=== PATIENT | female | born 1975 | race Caucasian/White ===

== ENCOUNTER 2016-10-08 18:31 | Emergency (ER) | payer OTHER ==
[2016-10-08 19:06] LABS: Basophils # (auto) 0 uL; Basophils % (auto) 0.5 % (0.0-2.0); Eosinophils # (auto) 0.1 uL; Hematocrit 37.6 % (36.0-46.0); Hemoglobin 12.5 g/dL (12.2-16.2); Lymphocytes % (auto) 28.2 % (10.0-50.0); Mean Corpuscular Hemoglobin 31.8 pg (28.0-32.0); Mean Corpuscular Hgb Conc. 33.3 g/dL (32.0-36.0); Mean Corpuscular Volume 95.2 fL (80.0-100.0); Mean Platelet Volume 7.1 fL (7.4-10.4); Monocytes # (auto) 0.3 uL; Neutrophils # (auto) 4.6 uL; Neutrophils % (auto) 65.3 % (37.0-80.0); Platelet Count (auto) 393 10^3/uL (140-450); Red Cell Distribution Width 13.2 % (11.6-16.0); White Blood Cell 7.1 10^3/uL (4.4-10.8)
[2016-10-08 19:21] LABS: Anion Gap 9 (5-15); Aspartate Aminotransferase 9 U/L (15-37); BUN/Creatinine Ratio 12.2; Blood Urea Nitrogen 12 mg/dL (7-18); Calcium 8.8 mg/dL (8.5-10.1); Carbon Dioxide 25 mmol/L (21-32); Chloride 108 mmol/L (98-107); GFR African American 80 mL/min; GFR Non-African American 66 mL/min; Glucose 117 mg/dL (74-106); Magnesium 2.1 mg/dL (1.6-2.6); Potassium 3.2 mmol/L (3.5-5.1); Sodium 142 mmol/L (136-145)
[2016-10-08 19:26] LABS: Alkaline Phosphatase 57 U/L (45-117); Bilirubin, Total 0.3 mg/dL (0.2-1.0); Total Protein 7.2 g/dL (6.4-8.2)
[2016-10-08] MEDS ORDERED: ASPirin 81 mg TAB PO ONE (23:30)
[2016-10-08] MEDS ORDERED: LORazepam 0.5 MG TAB PO ONE (23:30)
[2016-10-09 00:04] LABS: INR 1.01 (0.9-1.15)
[2016-10-09 00:31] LABS: B-Type Natriuretic Peptide 41.3 pg/mL (0-100); Temperature: 22.8 C (20.0-25.0)
[2016-10-09 02:01] VITALS: BP 105/66
[2016-10-09] MEDS ORDERED: POTASSIUM CHL 10% (20 MEQ/15ML) ORAL SOLN PO ONE (02:45)
== END 2016-10-09 03:47 | disposition home or self-care (01) ==
LOC: ER 18:31
DX: R07.2 Precordial pain (principal); R06.02 Shortness of breath; R42 Dizziness and giddiness; F41.9 Anxiety disorder, unspecified
CPT/HCPCS: 36415; 71010; 80053; 81025; 83735; 83880; 84484; 85025; 85379; 85610; 85730; 93005

== ENCOUNTER 2024-12-31 22:07 | Emergency (ER) | payer OTHER ==
[~2024-12-31] VITALS: Ht 154.9 cm; Wt 53.6 kg
[2024-12-31 22:38] LABS: Urine Protein, UAD TRACE (Negative)
--- NOTE | 2024-12-31 22:42 | ED.PDOC ---
General HPI Comments A 49 year-old female presents to the ED with a chief complaint of UTI with associated hematuria, dysuria, and abdominal pain for X1 month. Patient reports she was given antibiotics by PCP for diagnosed UTI but has not experienced any alleviating factors. Patient came to the ED today as ordered by PCP. Patient has no further symptoms at this time and otherwise denies further associated symptoms of chest pain, fever, chills, weakness, fatigue, or body aches. Denies any vaginal discharge or malodorous concerns. Vital signs were stable on arrival. Chief Complaint: Urinary Time Seen by MD: 22:18 Primary Care Provider: CORINA Reviewed notes: Medications, Allergies Allergies: Coded Allergies: No Known Drug Allergy (Verified Allergy, Unknown, 12/31/24) Information Source: Patient Mode of Arrival: Ambulatory Severity: Moderate Timing: Weeks Duration: Since onset Symptoms: Dysuria, Hematuria History of: UTI Location: (R) Flank associated signs and symptoms: Abdominal Pain, Dysuria, Hematuria Past Medical History PAST MEDICAL HISTORY: Denies Past Medical History (Other): Recent antibiotic resistant urinary tract infection. Surgical History: Denies all surgeries GRAPPLE CREW LEADER History: No Pertinent GRAPPLE CREW LEADER History Family History Family History: Unobtainable Social History Smoker: Non-Smoker Alcohol: Denies ETOH Use Drugs: Denies Drug Use Lives In: Home Constitutional: denies: chills, diaphoresis, fatigue, fever, malaise, sweats, weakness, others EENTM: denies: blurred vision, double vision, ear bleeding, ear discharge, ear drainage, ear pain, ear ringing, eye pain, eye redness, hearing loss, mouth pain, mouth swelling, nasal discharge, nose bleeding, nose congestion, nose pain, photophobia, tearing, throat pain, throat swelling, voice changes, others Respiratory: denies: cough, hemoptysis, orthopnea, SOB at rest, shortness of breath, SOB with excertion, stridor, wheezing, others Cardiovascular: denies: chest pain, dizzy spells, diaphoresis, Dyspnea on exertion, edema, irregular heart beat, left arm pain, lightheadedness, palpitations, PND, syncope, others Gastrointestinal: reports: abdominal pain; denies: abdomen distended, blood streaked bowels, constipated, diarrhea, dysphagia, difficulty swallowing, hematemesis, melena, nausea, poor appetite, poor fluid intake, rectal bleeding, rectal pain, vomiting, others Genitourinary: reports: dysuria, hematuria; denies: abnormal vagina bleeding, burning, dyspareunia, flank pain, frequency, incontinence, pain, , vagina discharge, urgency, others Neurological: denies: dizziness, fainting, headache, left sided numbness, left sided weakness, numbness, paresthesia, pre-existing deficit, right sided numbness, right sided weakness, seizure, speech problems, tingling, tremors, weakness, others Musculoskeletal: denies: back pain, gout, joint pain, joint swelling, muscle pain, muscle stiffness, neck pain, others Integumetry: denies: bruises, change in color, change in hair/nails, dryness, laceration, lesions, lumps, rash, wounds, others Allergic/Immunocompromised: denies: Difficulty Healing, Frequent Infections, Hives, Itching, others Hematologic/Lymphatic: denies: anemia, blood clots, easy bleeding, easy b ruising, swollen glands, others Endocrine: denies: excessive hunger, excessive sweating, excessive thirst, excessive urination, flushing, intolerance to cold, intolerance to heat, unexplained weight gain, unexplained weight loss, others Psychiatric: denies: anxiety, bipolar disorder, depression, hopeless, panic disorder, schizophrenia, sleepless, suicidal, others All Other Systems: Reviewed and Negative Physical Exam General Appearance: Moderate Distress (Moderate distress due to vaginal discomfort and dysuria), Normal HEENT: Normal ENT Inspection, Pharynx Normal, TMs Normal Neck: Full Range of Motion, Non-Tender, Normal, Normal Inspection Respiratory: Chest Non-Tender, Lungs Clear, No Accessory Muscle Use, No Respiratory Distress, Normal Breath Sounds Cardiovascular: No Edema, No JVD, No Murmur, No Gallop, Normal Peripheral Pulses, Regular Rate/Rhythm Breast Exam: Deferred Gastrointestinal: No Organomegaly, Non Tender, No Pulsatile Mass, Normal Bowel Sounds, Soft Genitalia: Deferred Pelvic: Deferred Rectal: Deferred Extremities: No calf tenderness, Normal capillary refill, Normal inspection, Normal range of motion, Non-tender, No pedal edema Neurologic: Alert, No Motor Deficits, Normal Affect, Normal Mood, No Sensory Deficits Cerebellar Function: Normal Reflexes: Normal Skin: Dry, Normal Color, Warm Lymphatic: No Adenopathy Was a procedure done? Was a procedure done?: No Differential Diagnosis Kidney stone (Female): N/A Urinary Problem (Female): Urolithiasis, UTI, Vaginitis X-Ray, Labs, Meds, VS Vital Signs Date Time Temp Pulse Resp B/P (MAP) Pulse Ox O2 Delivery O2 Flow Rate FiO2 12/31/24 23:06 87 16 95 Room Air* 0 21 12/31/24 22:50 98.5 87 16 139/68 (91) 95 98.5 12/31/24 22:17 98.9 94 18 137/91 (106) 94 98.9 Lab Test 12/31/24 22:37 12/31/24 22:20 Range/Units White Blood Count 6.1 4.4-10.8 10^3/uL Red Blood Count 4.20 4.0-5.20 10^6/uL Hemoglobin 13.5 12.2-16.2 g/dL Hematocrit 39.2 36.0-46.0 % Mean Corpuscular Volume 93.5 80.0-100.0 fL Mean Corpuscular Hemoglobin 32.1 H 28.0-32.0 pg Mean Corpuscular Hemoglobin Concent 34.4 32.0-36.0 g/dL Red Cell Distribution Width 13.6 11.8-14.3 % Platelet Count 356 140-450 10^3/uL Mean Platelet Volume 6.4 L 6.9-10.8 fL Neutrophils (%) (Auto) 54.4 37.0-80.0 % Lymphocytes (%) (Auto) 35.7 10.0-50.0 % Monocytes (%) (Auto) 7.7 0.0-12.0 % Eosinophils (%) (Auto) 1.4 0.0-7.0 % Basophils (%) (Auto) 0.8 0.0-2.0 % Neutrophils # (Auto) 3.3 1.6-8.6 10 ^3/uL Lymphocytes # (Auto) 2.2 0.4-5.4 10 ^3/uL Monocytes # (Auto) 0.5 0-1.3 10 ^3/uL Eosinophils # (Auto) 0.1 0-0.8 10 ^3/uL Basophils # (Auto) 0 0-0.2 10 ^3/uL Nucleated Red Blood Cells 0.0 % Sodium Level 142 136-145 mmol/L Potassium Level 4.1 3.5-5.1 mmol/L Chloride Level 108 H 98-107 mmol/L Carbon Dioxide Level 23 20-31 mmol/L Anion Gap 11 5-15 Blood Urea Nitrogen 17 9-23 mg/dL Creatinine 1.04 H 0.550-1.02 mg/dL Glomerular Filtration Rate Calc 65 >90 mL/min BUN/Creatinine Ratio 16.3 10.0-20.0 Serum Glucose 114 H 74-106 mg/dL Calcium Level 9.5 8.7-10.4 mg/dL Urine Color Brown Yellow Urine Clarity Ex.turbid Clear Urine pH 6.0 5.0-9.0 Urine Specific [place] 1.031 1.001-1.035 Urine Protein Trace H Negative Urine Ketones Negative Negative Urine Blood Negative Negative /uL Urine Nitrite 1+ H Negative Urine Bilirubin 1+ H Negative Urine Urobilinogen 3 H Negative mg/dL Urine Leukocyte Esterase Negative Negative /uL Urine RBC None seen 0 - 4 /hpf Urine WBC Clumps None seen None Seen /hpf Urine Microscopic WBC 0-5 /HPF Urine Squamous Epithelial Cells None seen <5 /hpf Urine Uric Acid Crystals Few None Seen /hpf Urine Bacteria None seen None Seen /hpf Urine Glucose Normal Normal mg/dL Current Medications Medications (Trade) Dose Ordered Sig/Isi Route Start Time Stop Time Status Last Admin Acetaminophen/ Hydrocodone Bitart ([place]arshall 10/325MG Tab) 1 tab ONCE ONCE PO 12/31/24 22:30 12/31/24 22:32 DC 12/31/24 22:56 Ceftriaxone Sodium (Rocephin) 1,000 mg ONCE ONCE IM 12/31/24 22:30 12/31/24 22:32 DC 12/31/24 22:57 X-Ray, Labs, Meds, VS Comment All studies performed the ED were evaluated by me personally. Serum and urinalysis were unremarkable for any systemic concerns. Spent time discussing results with the patient and advised continue follow up with her urologist as the patient may require a cystogram for a histology evaluation to rule out causes of her dysuria and vaginal discomfort. Time of 1ST Reevaluation: 00:44 Reevaluation 1ST: Improved Consultation: PCP, Urology Patient Education/Counseling: Diagnosis, Treatment Family Education/Counseling: Diagnosis, Treatment, No Family Present SEPSIS Sepsis Screen Date sepsis recognized/suspect: Dec 31, 2024 Time Sepsis recognized/suspect: 2209 Recent Procedure: No On Antibiotic Therapy: Yes Respiratory Rate >20: No Heart Rate >90: Yes Temp<36 C (96.8 F) or >38.3 C: No SBP <90 or MAP <65 mmHG: No New Acute Mental Status Change: No Is the patient on CPAP, BIPAP,: No Physician Orders Urine Bacterial Culture (12/31/24 22:30) Vital Signs Date Time Temp Pulse Resp B/P (MAP) Pulse Ox O2 Delivery O2 Flow Rate FiO2 12/31/24 23:06 87 16 95 Room Air* 0 21 12/31/24 22:50 98.5 87 16 139/68 (91) 95 98.5 12/31/24 22:17 98.9 94 18 137/91 (106) 94 98.9 Laboratory Tests Test 12/31/24 22:37 White Blood Count 6.1 10^3/uL (4.4-10.8) Medications Medications Dose Ordered Sig/Isi Route Start Time Stop Time Status Last Admin Dose Admin Acetaminophen/ Hydrocodone Bitart 1 tab ONCE ONCE PO 12/31/24 22:30 12/31/24 22:32 DC 12/31/24 22:56 Ceftriaxone Sodium 1,000 mg ONCE ONCE IM 12/31/24 22:30 12/31/24 22:32 DC 12/31/24 22:57 Departure 1 Departure Time of Disposition: 00:44 Impression: Primary Impression: Dysuria Disposition: 01 HOME / SELF CARE / HOMELESS Condition: Stable Additional Instructions: Advised patient utilize pain medication as needed for symptomatic relief. Patient has been advised to follow up with her urologist as scheduled with the 1st of the next month for continued evaluation as there may be some urethral spasticity or intra bladder concerns. e-Prescriptions Hydrocodone-Acetaminophen (Hydrocodone Bitartrate/AC 10-325 mg) 1 Tab Tab 1 TAB PO Q8HP PRN, #20 TAB Prov: GUY TUCKER PAC 01/01/25 Discharged With: Self, Friend Critical Care Note Critical Care Time?: No Stability Stability form required: No Heart Score Heart Score: Heart Score Response (Comments) Value History N/A 0 EKG N/A 0 Age N/A 0 Risk Factors N/A 0 Troponin N/A 0 Total 0 I personally scribed for GUY TUCKER PAC ([email or web address]) on 12/31/24 at 22:42. Electronically submitted by Lita Bender ([email or web address]). GUY TUCKER [facility] Dec 31, 2024 22:42
[2024-12-31] MEDS: HYDROcodone-ACET 10/325MG TAB PO ONE (22:56)
[2024-12-31] MEDS: cefTRIAXone SOD 1,000 MG VL IM ONE (22:57)
[2024-12-31 23:00] LABS: Hematocrit 39.2 % (36.0-46.0); Hemoglobin 13.5 g/dL (12.2-16.2); Mean Corpuscular Hemoglobin 32.1 pg (28.0-32.0); Mean Corpuscular Volume 93.5 fL (80.0-100.0); Nucleated Red Blood Cells % 0.0 %
[2024-12-31 23:06] VITALS: PULSE 87; RESP 16; O2SAT 95
[2024-12-31 23:07] LABS: Potassium 4.1 mmol/L (3.5-5.1); Sodium 142 mmol/L (136-145)
[2024-12-31 23:08] LABS: Anion Gap 11 (5-15); Carbon Dioxide 23 mmol/L (20-31)
[2024-12-31 23:09] LABS: Calcium 9.5 mg/dL (8.7-10.4)
[2024-12-31 23:13] LABS: Chloride 108 mmol/L (98-107)
[2024-12-31 23:14] LABS: BUN/Creatinine Ratio 16.3 (10.0-20.0); Blood Urea Nitrogen 17 mg/dL (9-23)
[2024-12-31 23:20] LABS: Glucose 114 mg/dL (74-106)
[2025-01-01 00:26] LABS: Urine WBC Clumps None Seen /hpf (None Seen)
[2025-01-01] MEDS ORDERED: HYDR-4798 PO (00:45)
[2025-01-01 01:00] VITALS: BP 116/79; PULSE 85; RESP 18; TEMP 97.8; O2SAT 96
== END 2025-01-01 01:00 | disposition home or self-care (01) ==
LOC: ER 22:07
DX: R30.0 Dysuria (principal); Z79.899 Other long term (current) drug therapy
CPT/HCPCS: 36415; 80048; 81001; 85025; 87086; 96372; 99283; J0696

== ENCOUNTER 2025-02-15 21:53 | Emergency (ER) | payer OTHER ==
[~2025-02-15] VITALS: Ht 154.9 cm; Wt 50.6 kg
[~2025-02-15 21:53] MED LIST: HYDR-4798 PO
--- NOTE | 2025-02-15 22:23 | ECG ---
[facility] Test Date: 2025-02-15 Test Time: 22:14:16 Pat Name: LIZY DUKES Department: ED Room: Gender: F Senior Applications Analyst: MAURIZIO : 1975 Requested By: KRISTIAN GEE Order Number: [id number] Reading MD: Measurements Intervals Marvin Rate: 99 P: 69 OH: 147 QRS: 64 QRSD: 94 T: 56 QT: 354 QTc: 455 Interpretive Statements Sinus rhythm Probable left atrial enlargement Please click the below link to view image of tracing.
--- NOTE | 2025-02-16 01:33 | ED.PDOC ---
HPI Comments HPI: 49 year old female presents to the ED with a chief complaint of palpitations onset 2 weeks. Patient states she has been experiencing palpitations as well as numbness/tingling for the past 2 weeks. Patient states she experiences similar symptoms when potassium levels are low. 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 Denies fever, chills, nausea, vomiting, diarrhea, headache, shortness of breath. No other symptoms or modifiyng factors present at this time. Initial Vitals BP: 158/96 HR: 113 RR: 18 O2: 95% Temp: 97.8 F Past Medical History: bile acid malabsorption Past Surgical History: tubal ligation Social History: Denies ETOH, smoking, and drug use. Medications: Potassium, Vitamin D Allergies: NKDA HPI: Poor Historian. Denies any chest pain shortness of breath or any other complaints except as mentioned in HPI. REVIEW OF SYSTEMS: CONSTITUTIONAL: Denies acute: fever, diaphoresis, chills, generalized weakness. HEAD: Denies acute: headache, photophobia Eyes: Denies acute: Double vision, vision loss, eye pain, eye discharge. EARS: Denies acute: tinnitus, hearing loss, ear discharge, ear pain, THROAT: Denies acute: sore throat, swelling, difficulty swallowing , pain with swallowing, change in voice. NECK: Denies acute: neck pain, neck swelling, stiff neck. HEART: Denies acute : chest pain, LUNGS: Denies acute: SOB, wheezing, cough, hemoptysis ABDOMEN: Denies acute: abdominal pain, Nausea, Vomiting, diarrhea, melena , hematemesis, hematochezia SKIN: Denies acute: rash, redness, lesions, itchiness. EXTREMITIES: Denies acute: calf pain, weakness, denies pain in extremity. Denies acute: Low back pain. Neuro: Denies acute: focal neurological deficit, motor or sensory focal neurological deficit, tremors, seizure like activity, confusion, dizziness, change in mental status, loss of bowel or bladder function, cauda equina like symptoms. : Denies acute: dysuria, hematuria, flank pain, increase in urinary frequency. PSYCH: Denies acute: hallucination, suicidal ideation, homicidal ideation. FEMALE: Denies acute: abnormal vaginal bleeding, foul odor, unusual discharge. PHYSICAL EXAM: General: -----no---acute distress, awake and alert. Head: normocephalic, atraumatic. Neck: supple, trachea is midline, no swelling. Throat: Normal phonation. Eyes:, no erythema, no purulent discharge, no proptosis, no icterus. Heart: regular rate, regular rhythm, no significant murmur appreciated. Lungs: no apparent respiratory distress, Able to speak in full sentences. No wheezing, no rhonchi, no crackles. No stridors Clear to auscultation bilaterally. Abdomen: non tender to palpation, non distended, soft, no guarding, no rebound, + bowel sounds. Neuro: Awake, Alert, oriented to name, self, situation, follows commands GCS=15. Speech is normal. Skin: no petechia, no purpura, no cyanosis, non-pale, not jaundice. Lower extremities: --no - Pitting edema no deformity, no focal swelling, no calf TTP. Makes eye contact. moves all four extremities. Face: no apparent facial droop. Ambulating in the ED independently. ED COURSE: DISCLAIMER: This medical document was created using an electronic medical record system with voice recognition software and computerized dictation system. Although this document has been carefully reviewed, there might still be some phonetic and typographical errors. Occasional wrong-word or "sound-alike" substitutions may have occurred due to the inherent limitations of voice recognition software. These areas are purely typographical due to imperfections of the software programs and do not reflect any compromise in the patient's medical care. Please read the chart carefully and recognize, using context, where these substitutions have occurred. Chief Complaint: Palpitations Time Seen by MD: 01:30 Primary Care Provider: CORINA Reviewed Notes: Medications, Allergies Allergies: Coded Allergies: No Known Drug Allergy (Verified Allergy, Unknown, 12/31/24) Home Meds Active Scripts Hydrocodone-Acetaminophen (Hydrocodone Bitartrate/AC 10-325 mg) 1 Tab Tab, 1 TAB PO Q8HP PRN, #20 TAB Prov:GUY TUCKER PAC 01/01/25 Information Source: Patient Mode of Arrival: Ambulatory Severity: Moderate Past Medical History Past Medical History (Other): bile acid malabsorption Surgical History: Denies all surgeries HOT DIP PLATER History: No Pertinent HOT DIP PLATER History Family History Family History: Unobtainable Social History Smoker: Non-Smoker Alcohol: Denies ETOH Use Drugs: Denies Drug Use Lives In: Home Was a procedure done? Was a procedure done?: No CP Differential Dx Differential Diagnosis: A-fib, A-Flutter, Angina, Anxiety / Panic Attack, Atrial Dysrhythmia, Digoxin Toxicity, Electrolyte Disorder, Heart Failure, Hyperthyroidism, Hyperventilation, Hypoxia, MAT, MD, PAC's, Pacemaker Malfunction, PSVT, Pulmonary Embolus, PVC's, Renal Failure, Sinus Tachycardia, Torsades De Pointes, Ventricular Dysrhythmia, V-Fib, V-Tach, WPW X-Ray, Labs, Meds, VS Vital Signs Date Time Temp Pulse Resp B/P (MAP) Pulse Ox O2 Delivery O2 Flow Rate FiO2 02/16/25 05:06 Room Air* 0 21 02/16/25 04:41 98.5 99 16 129/77 (94) 95 98.5 02/15/25 22:14 99 02/15/25 21:53 97.8 113 18 158/96 95 97.8 Lab Test 02/16/25 04:19 02/16/25 02:18 02/16/25 01:14 Range/Units Troponin I High Sensitivity 3 L < 3 L 3 L </=34 ng/L White Blood Count 5.5 4.4-10.8 10^3/uL Red Blood Count 3.74 L 4.0-5.20 10^6/uL Hemoglobin 12.1 L 12.2-16.2 g/dL Hematocrit 34.9 L 36.0-46.0 % Mean Corpuscular Volume 93.3 80.0-100.0 fL Mean Corpuscular Hemoglobin 32.3 H 28.0-32.0 pg Mean Corpuscular Hemoglobin Concent 34.6 32.0-36.0 g/dL Red Cell Distribution Width 13.1 11.8-14.3 % Platelet Count 347 140-450 10^3/uL Mean Platelet Volume 6.9 6.9-10.8 fL Neutrophils (%) (Auto) 54.1 37.0-80.0 % Lymphocytes (%) (Auto) 38.1 10.0-50.0 % Monocytes (%) (Auto) 6.0 0.0-12.0 % Eosinophils (%) (Auto) 0.8 0.0-7.0 % Basophils (%) (Auto) 1.0 0.0-2.0 % Neutrophils # (Auto) 3.0 1.6-8.6 10 ^3/uL Lymphocytes # (Auto) 2.1 0.4-5.4 10 ^3/uL Monocytes # (Auto) 0.3 0-1.3 10 ^3/uL Eosinophils # (Auto) 0 0-0.8 10 ^3/uL Basophils # (Auto) 0.1 0-0.2 10 ^3/uL Nucleated Red Blood Cells 0.0 % Sodium Level 141 136-145 mmol/L Potassium Level 3.6 3.5-5.1 mmol/L Chloride Level 106 98-107 mmol/L Carbon Dioxide Level 26 20-31 mmol/L Anion Gap 9 5-15 Blood Urea Nitrogen 10 9-23 mg/dL Creatinine 1.19 H 0.550-1.02 mg/dL Glomerular Filtration Rate Calc 55 >90 mL/min BUN/Creatinine Ratio 8.4 L 10.0-20.0 Serum Glucose 106 74-106 mg/dL Calcium Level 9.6 8.7-10.4 mg/dL Magnesium Level 1.8 1.6-2.6 mg/dL Total Bilirubin 0.4 0.2-1.0 mg/dL Aspartate Amino Transferase (AST) 19 13-40 U/L Alanine Aminotransferase (ALT) 15 7-40 U/L Alkaline Phosphatase 83 46-116 U/L Total Protein 7.3 5.7-8.2 g/dL Albumin 4.9 H 3.2-4.8 g/dL [address] [address] Ph: [phone] DIAGNOSTIC IMAGING Diagnostic Imaging Report : [id number] Signed PATIENT: LIZY DUKES ACCT: [id number] UNIT: [id number] : 1975 LOC: ER ROOM / BED: / AGE / SEX: 49 / F ADM STATUS: REG ER SERVICE 0125 ORDERING PHYSICIAN: KRISTIAN GEE DO PROCEDURE(s): CXRP - CHEST PORTABLE REASON: palpitations ORDER NUMBER(s): [id number], ACCESSION NUMBER(s): [id number] CHEST RADIOGRAPH Indication: palpitations Technique: Single frontal view of the chest was obtained COMPARISON: None FINDINGS: Lines and Tubes: None Lungs: Clear Pleura: No effusion. No pneumothorax. Cardiomediastinal contours: Unremarkable Bones: Unremarkable IMPRESSION: 1. No acute disease. ATED BY: TONO VANCE MD DICTATED DATE/TIME: 02/16/25248 SIGNED BY: TONO VANCE MD SIGNED DATE/TIME: 02/16/25248 CC: Time of 1ST Reevaluation: 02:00 Reevaluation 1ST: Unchanged Patient Education/Counseling: Diagnosis, Treatment Family Education/Counseling: No Family Present Comments Patient came suspected in the her potassium is low given her symptoms. Potassium was found to be normal. MDM: patient presented with the above HPI.--palpitations----workup was initiated. patient was found with the above mentioned diagnosis. the following medications were ordered: please refer to order lists of meds and tests obtained by myself Dr. Gee. Patient ED course and VS have been stabilized. Patient has been reassessed in the ED and remained in a stable condition. Pertinent incidental findings were discussed with the patient and/or family. Patient/family voices understanding and is agreeable with plan. Patient has been observed in the ED adequate length of time to insure improvement/stability. Escalation of care considered: Consideration of escalation to observation or admission Patient was DISCHARGED home in a stable condition. All the reports of any imaging studies that were ordered by myself were reviewed by myself. Departure 1 Departure Time of Disposition: 03:11 Impression: Primary Impression: Numbness and tingling Additional Impression: Palpitations Disposition: 01 HOME / SELF CARE / HOMELESS Condition: Stable Additional Instructions: Additional instructions: Please read all instructions provided in this packet carefully. You MUST follow-up with your primary care/family doctor in 1 to 2 days. If you are unable to see your primary care/family doctor, please return to our emergency room for re-assessment and re-evaluation in 1 to 2 days. Return to the emergency room here in our facility or to the nearest ER [facility] if your symptoms change or worsen. CONSULTATIONS: you MUST Follow-up for consultation as soon as possible with: -cardiology and neurology and gastroenterology in 1-2 days. Please call for appointment. You MUST call the consultants office yourself to make an appointment. You may need to arrange that through your insurance and/or your primary/family doctor. If you are unable to see the commercial solar sales consultant in 1 to 2 days, you must return to our emergency room (or any other ER of your choice) for re-assessment and re- evaluation. Adequate fluid hydration. Although you have been discharged from the Emergency Department, this does not mean that you have a "clean bill of health". No definitive diagnosis for your symptoms has been made today. It is possible that you are in the process of developing a serious illness. This is why you must return to the ED without fail if any new or worsening symptoms develop. Monitoring potassium level closely. Below is a copy of your radiological report for follow up: [place] [address] Ph: [phone] DIAGNOSTIC IMAGING Diagnostic Imaging Report : [id number] Signed PATIENT: LIZY DUKES ACCT: [id number] UNIT: [id number] : 1975 LOC: ER ROOM / BED: / AGE / SEX: 49 / F ADM STATUS: REG ER SERVICE 4 ORDERING PHYSICIAN: KRISTIAN GEE DO PROCEDURE(s): CXRP - CHEST PORTABLE REASON: palpitations ORDER NUMBER(s): [id number], ACCESSION NUMBER(s): [id number] CHEST RADIOGRAPH Indication: palpitations Technique: Single frontal view of the chest was obtained COMPARISON: None FINDINGS: Lines and Tubes: None Lungs: Clear Pleura: No effusion. No pneumothorax. Cardiomediastinal contours: Unremarkable Bones: Unremarkable IMPRESSION: 1. No acute disease. ATED BY: TONO VANCE MD DICTATED DATE/TIME: 02/16/25248 SIGNED BY: TONO VANCE MD SIGNED DATE/TIME: 02/16/25248 CC: Discharged With: Self Critical Care Note Critical Care Time?: No Heart Score Heart Score: Heart Score Response (Comments) Value History Slightly Suspicious 0 EKG Normal 0 Age 45-64 1 Risk Factors No known risk factors 0 Troponin Normal limit 0 Total 1 I personally scribed for KRISTIAN GEE DO ([email or web address]) on 02/16/25 at 01:33. Electronically submitted by Vernell Feliciano ([email or web address]). I personally scribed for KRISTIAN GEE DO ([email or web address]) on 02/16/25 at 03:10. Electronically submitted by Vernell Feliciano ([email or web address]). KRISTIAN GEE DO Feb 16, 2025 01:33
[2025-02-16 01:41] LABS: Hematocrit 34.9 % (36.0-46.0); Hemoglobin 12.1 g/dL (12.2-16.2); Mean Corpuscular Hemoglobin 32.3 pg (28.0-32.0); Mean Corpuscular Volume 93.3 fL (80.0-100.0); Nucleated Red Blood Cells % 0.0 %
[2025-02-16 02:17] LABS: Alanine Aminotransferase 15 U/L (7-40); Alkaline Phosphatase 83 U/L (46-116); Anion Gap 9 (5-15); BUN/Creatinine Ratio 8.4 (10.0-20.0); Bilirubin, Total 0.4 mg/dL (0.2-1.0); Blood Urea Nitrogen 10 mg/dL (9-23); Calcium 9.6 mg/dL (8.7-10.4); Carbon Dioxide 26 mmol/L (20-31); Chloride 106 mmol/L (98-107); Magnesium 1.8 mg/dL (1.6-2.6); Potassium 3.6 mmol/L (3.5-5.1); Sodium 141 mmol/L (136-145); Total Protein 7.3 g/dL (5.7-8.2)
[2025-02-16 02:24] LABS: Albumin 4.9 g/dL (3.2-4.8); Glucose 106 mg/dL (74-106)
--- NOTE | 2025-02-16 02:51 | DVH ---
CHEST RADIOGRAPH Indication: palpitations Technique: Single frontal view of the chest was obtained COMPARISON: None FINDINGS: Lines and Tubes: None Lungs: Clear Pleura: No effusion. No pneumothorax. Cardiomediastinal contours: Unremarkable Bones: Unremarkable IMPRESSION: 1. No acute disease.
[2025-02-16 04:41] VITALS: BP 129/77; PULSE 99; RESP 16; TEMP 98.5; O2SAT 95
[2025-02-16] MEDS: SODIUM CHLORIDE 0.9% 1,000 ML IV ONE (04:53)
== END 2025-02-16 05:10 | disposition home or self-care (01) ==
LOC: ER 21:58
DX: R20.0 Anesthesia of skin (principal); R20.2 Paresthesia of skin; Z79.899 Other long term (current) drug therapy
CPT/HCPCS: 36415; 71045; 80053; 83735; 84484; 85025; 93005